=== PATIENT | female | born 2000 | race Caucasian/White ===

== ENCOUNTER → 2020-07-22 | Outpatient (CLI) | payer OTHER ==
[2020-07-25 11:37] LABS: Hepatitis B Core IgM Negative; Hepatitis B Surface Antigen Negative (Negative)
== END | disposition home or self-care (01) ==
LOC: LAB 11:58
PROVIDERS: ATTEND Nurse Practitioner Family
DX: Z04.3 Encounter for examination and observation following other accident (principal); W46.1XXA Contact with contaminated hypodermic needle, initial encounter
CPT/HCPCS: 36415; 86703; 86705; 86803; 87340